=== PATIENT | male | born 2000 | race Caucasian/White ===

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

== ENCOUNTER → 2018-08-08 | Outpatient (CLI) | payer OTHER | LOC: M WUC 10:12 | DX: M25.541 Pain in joints of right hand (principal) | CPT/HCPCS: 73130 ==